=== PATIENT | female | born 1990 | race American Indian/Alaskan Native ===

== ENCOUNTER 2016-09-04 23:38 | Emergency (ER) | payer MEDICAID ==
[2016-09-04 23:57] VITALS: BP 118/82
[2016-09-05] MEDS ORDERED: MUCINEX ER PO ONE (01:37)
[2016-09-05] MEDS ORDERED: TYLENOL/CODEINE PO ONE (01:38)
--- NOTE | 2016-09-05 01:54 | Emergency Department Report ---
HPI - General Chief Complaint: Upper Respiratory Infection Time Seen by Provider: 09/05/16 01:19 - HPI HPI: This is a 26-year-old female who presents to ED complaining of coughing for the past week. Patient states started over the dry cough last week. She states this radiates its gauze and wet with yellow greenish mucus productive cough due to her using some Vicks vapor on her chest. Patient states she has some pain from intermittent coughing throughout the day. Patient states she is unable to get rested to coughing. She also has a generalized headache worsens with coughing sign she states she's been taking some Tylenol/aspirin for her generalized body aches She denies fevers/chills/nausea/vomiting/abdominal pain/dizziness/blurred vision / ear pain ED Past Medical Hx - Past Medical History Previous Medical History?: No - Surgical History Past Surgical History?: Yes Additional Surgical History: colonoscopy - Social History Smoking Status: Current Some Day Smoker Substance Use Type: None - Medications Home Medications: Home Medications Medication Instructions Recorded Confirmed Last Taken Type Azithromycin [Zithromax] 250 mg PO DAILY #1 pack 09/05/16 Unknown Rx Benzonatate [Tessalon Perles] 100 mg PO Q8HR #21 capsule 09/05/16 Unknown Rx Promethazine /Codeine 5 ml PO Q6H PRN #80 ml 09/05/16 Unknown Rx [Phenergan/Codeine 6.25-10 mg/5Ml] guaiFENesin ER [Mucinex ER] 600 mg PO Q12H #12 tablet.er 09/05/16 Unknown Rx ED Review of Systems ROS: Stated complaint: COLD SYMPTOMS Other details as noted in HPI Constitutional: denies: chills, fever Eyes: denies: eye pain, eye discharge, vision change ENT: denies: ear pain, throat pain Respiratory: denies: cough, shortness of breath, wheezing Cardiovascular: denies: chest pain, palpitations Endocrine: no symptoms reported Gastrointestinal: denies: abdominal pain, nausea, diarrhea Genitourinary: denies: urgency, dysuria, discharge Musculoskeletal: denies: back pain, joint swelling, arthralgia Skin: denies: rash, lesions Neurological: denies: headache, weakness, paresthesias Psychiatric: denies: anxiety, depression Hematological/Lymphatic: denies: easy bleeding, easy bruising Physical Exam - Physical Exam Vital Signs: Vital Signs 09/04/16 23:53 Temperature 98.2 F Pulse Rate 67 Respiratory 18 Rate Blood Pressure 118/82 Blood Pressure 118/82 [Right] O2 Sat by Pulse 100 Oximetry Physical Exam: GENERAL: Alert and oriented x3, no apparent distress, Normal Gait, atraumatic. HEAD: Head is normocephalic and a-traumatic. EYES: Extra ocular muscles are intact. Pupils are equal, round, and reactive to light and accommodation. EARS: symetrical, atraumatic, non tender, ear canal clear and moderate cerumen, tympanic membrance non inflamed. gross auditory nml bilaterally. NOSE: Nose symetrical, Nontender,Nares appeared normal. MOUTH:Mouth is well hydrated and without lesions. Tonsils nonerythematous or swollen, Uvula midline, Tongue not elevated. Mucous membranes are moist. Posterior pharynx clear, no exudate or lesions. Patent airways. NECK: Supple. Non edematous, No lymphadenopathy or thyromegaly. No C-spine tenderness LUNGS: Symetrical with respiration, No wheezing, no rales or crackles, adventitious lung sounds left HEART: S1, S2 present, regular rate and rhythm without murmur, no rubs, no gallops. Non tender to palpation ABDOMEN: No organomegaly was noted,Positive bowel sounds, soft, and non- distended. . Nontender to palpation on all Quadrants, NO CVA tenderness. SKIN: Warm and dry, No lesions, No ulceration or induration present. ED Course Vital Signs 09/04/16 23:53 Temperature 98.2 F Pulse Rate 67 Respiratory 18 Rate Blood Pressure 118/82 Blood Pressure 118/82 [Right] O2 Sat by Pulse 100 Oximetry ED Medical Decision Making - Medical Decision Making 26-year-old female presents with upper respiratory infection ED course: Patient received Tylenol with Codeine, Mucinex. Chest x-ray ordered. Chest x-ray shows no infiltrates, no cardio pulmonary process Discussed findings with patient. Vital signs are normal patient is in no acute distress Discussed the patient denies symptoms initially resolved and will need symptomatic relief. Discussed with the medication as prescribed Discussed follow-up with primary care physician. Discussed if worsening symptoms to return to the ED Critical care attestation.: If time is entered above; I have spent that time in minutes in the direct care of this critically ill patient, excluding procedure time. ED Disposition Clinical Impression: URI (upper respiratory infection) Qualifiers: URI type: unspecified URI Qualified Code(s): J06.9 - Acute upper respiratory infection, unspecified Disposition: DC-01 TO HOME OR SELFCARE Is pt being admited?: No Does the pt Need Aspirin: No Condition: Stable Instructions: Upper Respiratory Infection (ED), Guaifenesin (By mouth), Acute Cough (ED) Prescriptions: Azithromycin [Zithromax] 250 mg PO DAILY #1 pack Benzonatate [Tessalon Perles] 100 mg PO Q8HR #21 capsule guaiFENesin ER [Mucinex ER] 600 mg PO Q12H #12 tablet.er Promethazine /Codeine [Phenergan/Codeine 6.25-10 mg/5Ml] 5 ml PO Q6H PRN #80 ml PRN Reason: cough Referrals: PRIMARY CARE, [Primary Care Provider] - 3-5 Days [facility] [Outside] - 3-5 Days [facility] [Outside] - 3-5 Days [facility] [Outside] - 3-5 Days Forms: Accompanied Note, Work/School Release Form(ED) Time of Disposition: 02:49
--- NOTE | 2016-09-05 02:51 | XRay Report ---
FINAL REPORT PROCEDURE: XR CHEST ROUTINE 2V TECHNIQUE: PA and lateral chest radiographs were obtained. CPT 50083 HISTORY: katherin/cp/cough COMPARISON: No prior studies are available for comparison. FINDINGS: Heart: Normal. Mediastinum/Vessels: Normal. Lungs/Pleural space: Normal. Bony thorax: No acute osseous abnormality. Other: IMPRESSION: Normal examination.
== END 2016-09-05 03:06 | disposition home or self-care (01) ==
LOC: ED 23:38
DX: J06.9 Acute upper respiratory infection, unspecified (principal); F17.210 Nicotine dependence, cigarettes, uncomplicated
CPT/HCPCS: 71020; 99283

== ENCOUNTER 2018-10-09 21:14 | Emergency (ER) | payer MEDICAID ==
[2018-10-09 22:01] VITALS: BP 114/79
--- NOTE | 2018-10-09 22:03 | Emergency Department Report ---
ED Allergic Reaction HPI - General Chief complaint: Allergic Reaction Stated complaint: POSSIBLE ALLERGIC REACTION Time Seen by Provider: 10/09/18 21:58 Source: patient Mode of arrival: Ambulatory Limitations: No Limitations - History of Present Illness Initial Comments: This is a 28-year-old female nontoxic well in appearance with no signs of distress presents to the ED for a work excuse. Patient stated that earlier today had an allergic reaction to unknown and had some rash to legs which now resolved. Denies any difficulty breasthing or rash now. Stated that all symptoms has resolved. Patient denies any symptoms. Denies any fever, chills, headache, nausea, vomiting, chest pain or SOB. Denies any other complaints. -: This morning Exposure: unknown Treatment Prior to Arrival: benadryl Previous Allergy History: none - Related Data Previous Rx's Medication Instructions Recorded Last Taken Type Azithromycin [Zithromax] 250 mg PO DAILY #1 pack 09/05/16 Unknown Rx Benzonatate [Tessalon Perles] 100 mg PO Q8HR #21 capsule 09/05/16 Unknown Rx Promethazine /Codeine 5 ml PO Q6H PRN #80 ml 09/05/16 Unknown Rx [Phenergan/Codeine 6.25-10 mg/5Ml] guaiFENesin ER [Mucinex ER] 600 mg PO Q12H #12 tablet.er 09/05/16 Unknown Rx Allergies Allergy/AdvReac Type Severity Reaction Status Date / Time acetaminophen [From Percocet] Allergy Hives Verified 10/09/18 21:19 onion Allergy Hives Verified 10/09/18 21:19 oxycodone [From Percocet] Allergy Hives Verified 10/09/18 21:19 ED Review of Systems ROS: Stated complaint: POSSIBLE ALLERGIC REACTION Other details as noted in HPI Constitutional: denies: chills, fever Eyes: denies: eye pain, eye discharge, vision change ENT: denies: ear pain, throat pain Respiratory: denies: cough, shortness of breath, wheezing Cardiovascular: denies: chest pain, palpitations Endocrine: no symptoms reported Gastrointestinal: denies: abdominal pain, nausea, diarrhea Genitourinary: denies: urgency, dysuria, discharge Musculoskeletal: denies: back pain, joint swelling, arthralgia Skin: denies: rash, lesions Neurological: denies: headache, weakness, paresthesias Psychiatric: denies: anxiety, depression Hematological/Lymphatic: denies: easy bleeding, easy bruising ED Past Medical Hx - Surgical History Additional Surgical History: colonoscopy - Social History Smoking Status: Current Some Day Smoker Substance Use Type: None - Medications Home Medications: Home Medications Medication Instructions Recorded Confirmed Last Taken Type Azithromycin [Zithromax] 250 mg PO DAILY #1 pack 09/05/16 Unknown Rx Benzonatate [Tessalon Perles] 100 mg PO Q8HR #21 capsule 09/05/16 Unknown Rx Promethazine /Codeine 5 ml PO Q6H PRN #80 ml 09/05/16 Unknown Rx [Phenergan/Codeine 6.25-10 mg/5Ml] guaiFENesin ER [Mucinex ER] 600 mg PO Q12H #12 tablet.er 09/05/16 Unknown Rx ED Physical Exam - General Limitations: No Limitations General appearance: alert, in no apparent distress - Head Head exam: Present: atraumatic, normocephalic - ENT ENT exam: Present: normal exam, normal orophraynx, other (uvula midline. no angioedema.) - Neck Neck exam: Present: normal inspection, full ROM. Absent: tenderness, meningismus, lymphadenopathy - Respiratory Respiratory exam: Present: normal lung sounds bilaterally. Absent: respiratory distress, wheezes, rales, rhonchi, stridor, chest wall tenderness, accessory muscle use, decreased breath sounds, prolonged expiratory - Cardiovascular Cardiovascular Exam: Present: regular rate, normal rhythm, normal heart sounds. Absent: bradycardia, tachycardia, irregular rhythm, systolic murmur, diastolic murmur, rubs, gallop - Extremities Exam Extremities exam: Present: normal inspection, full ROM - Back Exam Back exam: Present: normal inspection, full ROM - Neurological Exam Neurological exam: Present: alert, oriented X3, normal gait - Psychiatric Psychiatric exam: Present: normal affect, normal mood - Skin Skin exam: Present: warm, dry, intact, normal color. Absent: rash ED Course - Reevaluation(s) Reevaluation #1: 10/09/18 22:02 Patient is speaking in full sentences with no signs of distress noted. ED Medical Decision Making - Medical Decision Making Patient was instructed to Follow-up with a primary care doctor in 3-5 days or if symptoms worsen and continue return to emergency room as soon as possible. At time of discharge, the patient does not seem toxic or ill in appearance. No acute signs of distress noted. Patient agrees to discharge treatment plan of care. No further questions noted by the patient. Critical care attestation.: If time is entered above; I have spent that time in minutes in the direct care of this critically ill patient, excluding procedure time. ED Disposition Clinical Impression: Encounter to obtain excuse from work Disposition: DC-01 TO HOME OR SELFCARE Is pt being admited?: No Does the pt Need Aspirin: No Condition: Stable Additional Instructions: Follow-up with a primary care doctor in 3-5 days or if symptoms worsen and continue return to emergency room as soon as possible. Referrals: PRIMARY CAREMD [Referring] - 3-5 Days MAGDIEL ERNST MD [Staff Physician] - 3-5 Days [facility] [Outside] - 3-5 Days [facility] [Outside] - 3-5 Days Forms: Work/School Release Form(ED)
== END 2018-10-09 22:42 | disposition home or self-care (01) ==
LOC: ED 21:14
DX: T78.40XA Allergy, unspecified, initial encounter (principal); R21 Rash and other nonspecific skin eruption; Y92.89 Other specified places as the place of occurrence of the external cause
CPT/HCPCS: 99282

== ENCOUNTER 2018-11-03 23:08 | Emergency (ER) | payer MEDICAID ==
[2018-11-04 00:53] VITALS: BP 120/72
--- NOTE | 2018-11-04 05:15 | Emergency Department Report ---
ED Allergic Reaction HPI - General Chief complaint: Allergic Reaction Stated complaint: RASH Time Seen by Provider: 11/04/18 03:08 Source: patient Mode of arrival: Ambulatory Limitations: No Limitations - History of Present Illness Initial Comments: 28-year-old female with chronic recurrent hives of unknown etiology that is not resolved with the emergency room treatments. States she's been seen multiple times in the emergency room 304 and provided with similar medications with no resolution of her hives. She is planning on wants an television announcer need some some some information regarding local physician to schedule an appointment with. Denies any wheezing or shortness of breath, no sore throat. No dysphagia. No stridor. The hemoptysis, hematemesis, hematochezia MD Complaint: hives Exposure: unknown Symptoms: rash, itching Treatment Prior to Arrival: other Previous Allergy History: none - Related Data Previous Rx's Medication Instructions Recorded Last Taken Type Azithromycin [Zithromax] 250 mg PO DAILY #1 pack 09/05/16 Unknown Rx Benzonatate [Tessalon Perles] 100 mg PO Q8HR #21 capsule 09/05/16 Unknown Rx Promethazine /Codeine 5 ml PO Q6H PRN #80 ml 09/05/16 Unknown Rx [Phenergan/Codeine 6.25-10 mg/5Ml] guaiFENesin ER [Mucinex ER] 600 mg PO Q12H #12 tablet.er 09/05/16 Unknown Rx Desloratadine [Clarinex] 5 mg PO DAILY #14 tablet 11/04/18 Unknown Rx hydrOXYzine HCL [Atarax] 25 mg PO Q6HR PRN #30 tablet 11/04/18 Unknown Rx Allergies Allergy/AdvReac Type Severity Reaction Status Date / Time onion Allergy Hives Verified 10/09/18 21:19 oxycodone [From Percocet] Allergy Hives Verified 10/09/18 21:19 ED Review of Systems ROS: Stated complaint: RASH Other details as noted in HPI Comment: All other systems reviewed and negative ED Past Medical Hx - Past Medical History Previous Medical History?: Yes Hx Asthma: Yes - Surgical History Past Surgical History?: Yes Additional Surgical History: colonoscopy - Social History Smoking Status: Never Smoker Substance Use Type: None - Medications Home Medications: Home Medications Medication Instructions Recorded Confirmed Last Taken Type Azithromycin [Zithromax] 250 mg PO DAILY #1 pack 09/05/16 Unknown Rx Benzonatate [Tessalon Perles] 100 mg PO Q8HR #21 capsule 09/05/16 Unknown Rx Promethazine /Codeine 5 ml PO Q6H PRN #80 ml 09/05/16 Unknown Rx [Phenergan/Codeine 6.25-10 mg/5Ml] guaiFENesin ER [Mucinex ER] 600 mg PO Q12H #12 tablet.er 09/05/16 Unknown Rx Desloratadine [Clarinex] 5 mg PO DAILY #14 tablet 11/04/18 Unknown Rx hydrOXYzine HCL [Atarax] 25 mg PO Q6HR PRN #30 tablet 11/04/18 Unknown Rx ED Physical Exam - General Limitations: No Limitations General appearance: alert, in no apparent distress - Head Head exam: Present: atraumatic, normocephalic - Eye Eye exam: Present: normal appearance - ENT ENT exam: Present: mucous membranes moist - Neck Neck exam: Present: normal inspection - Respiratory Respiratory exam: Present: normal lung sounds bilaterally. Absent: respiratory distress - Cardiovascular Cardiovascular Exam: Present: regular rate, normal rhythm. Absent: systolic murmur, diastolic murmur, rubs, gallop - GI/Abdominal GI/Abdominal exam: Present: soft, normal bowel sounds - Extremities Exam Extremities exam: Present: normal inspection - Back Exam Back exam: Present: normal inspection - Neurological Exam Neurological exam: Present: alert, oriented X3 - Psychiatric Psychiatric exam: Present: normal affect, normal mood - Skin Skin exam: Present: warm, dry, intact, urticaria (various stages, no angioedema). Absent: normal color, rash ED Course Vital Signs 11/04/18 11/04/18 00:10 03:27 Temperature 98.4 F Pulse Rate 75 72 Respiratory 12 16 Rate Blood Pressure 120/72 O2 Sat by Pulse 99 100 Oximetry ED Medical Decision Making - Medical Decision Making 28-year-old female with diffuse off and on recurrent for the last several days, unknown etiology, likely secondary to irritant of some type, although her diarrhea. He has not shown her so. Could be idiopathic or psychological well. The food related allergy far is to follow with television announcer to find the definitive corporate. She reports no known changes in her environment in the last few months Critical care attestation.: If time is entered above; I have spent that time in minutes in the direct care of this critically ill patient, excluding procedure time. ED Disposition Clinical Impression: Chronic idiopathic urticaria Disposition: - TO HOME OR SELFCARE Is pt being admited?: No Does the pt Need Aspirin: No Condition: Stable Instructions: Urticaria (ED) Prescriptions: hydrOXYzine HCL [Atarax] 25 mg PO Q6HR PRN #30 tablet PRN Reason: Itching Desloratadine [Clarinex] 5 mg PO DAILY #14 tablet Referrals: RUTH SANCHEZ MD [Referring] - 3-5 Days ABIOLA GRIFFIN MD [Referring] - 3-5 Days Forms: Work/School Release Form(ED)
== END 2018-11-04 03:50 | disposition home or self-care (01) ==
LOC: ED 23:08
DX: L50.1 Idiopathic urticaria (principal); J45.909 Unspecified asthma, uncomplicated; Z91.018 Allergy to other foods; Z88.8 Allergy status to other drugs, medicaments and biological substances; Z79.899 Other long term (current) drug therapy
CPT/HCPCS: 99282

== ENCOUNTER 2019-01-16 17:46 | Emergency (ER) | payer MEDICAID ==
--- NOTE | 2019-01-16 18:52 | Emergency Department Report ---
Chief Complaint: Upper Respiratory Infection Stated Complaint: CHEST CONGESTION Time Seen by Provider: 01/16/19 18:43 - HPI History of Present Illness: This is a 28 y.o. F. that presents to the ER with congestion for 1 week. Patient states she is going out of town tonight. Patient states she completed antibiotics and steroids prescribed by [facility]. Patient states she have followup with a pulmonary next month. She just want to know if she need to take her nebulizer with her out of town. Patient denies chest pain, shortness - ROS Review of Systems: Constitutional: denies: chills, fever Eyes: denies: eye pain, eye discharge, vision change ENT: admits: congestion denies: ear pain, throat pain Respiratory: denies: shortness of breath, wheezing, cough Cardiovascular: denies: chest pain, palpitations Gastrointestinal: denies: abdominal pain, nausea, diarrhea Musculoskeletal: denies: back pain, joint swelling, arthralgia Skin: denies: rash, lesions Neurological: denies: headache, weakness, paresthesias Psychiatric: denies: anxiety, depression Hematological/Lymphatic: denies: easy bleeding, easy bruising - Exam Vital Signs: Vital Signs 01/16/19 18:43 Temperature 98.1 F Pulse Rate 81 Respiratory 18 Rate Blood Pressure 116/80 O2 Sat by Pulse 100 Oximetry Physical Exam: GENERAL APPEARANCE: Well developed, well nourished, alert and cooperative, and appears to be in no acute distress. HEAD: normocephalic. EARS: External auditory canals and tympanic membranes clear, hearing grossly intact. NOSE: Turbinates congested with clear discharge. THROAT: Oral cavity and pharynx normal. No inflammation, swelling, exudate, or lesions. CARDIAC: Normal S1 and S2. No S3, S4 or murmurs. Rhythm is regular. There is no peripheral edema, cyanosis or pallor. Extremities are warm and well perfused. Capillary refill is less than 2 seconds. No carotid bruits. LUNGS: Clear to auscultation and percussion without rales, rhonchi, wheezing or diminished breath sounds. SKIN: Skin normal color, texture and turgor with no lesions or eruptions. PSYCHIATRIC: The mental examination revealed the patient was oriented to person, place, and time. The patient was able to demonstrate good judgement and reason, without hallucinations, abnormal affect or abnormal behaviors during the examination. Patient is not suicidal. MSE screening note: Focused history and physical exam performed. Due to findings the following was ordered: ED Medical Decision Making - Medical Decision Making Patient is stable was examined by me. Vitals are normal. Lungs clear throughout on exam. Completed antibiotics and steroids 1 week ago. PMH of asthma. Start mucinex and singular for upper respiratory infection. Follow-up with a primary care doctor in 3-5 days or if symptoms worsen and continue return to emergency room as soon as possible. Instructed to keep pulmonary appointment for next month. At time of discharge, the patient does not seem toxic or ill in appearance. No acute signs of distress noted. Patient agrees to discharge treatment plan of care. No further questions noted by the patient. ED Disposition for MSE Clinical Impression: URI, acute Disposition: DC-01 TO HOME OR SELFCARE Is pt being admited?: No Condition: Stable Instructions: Upper Respiratory Infection (ED) Prescriptions: guaiFENesin 400 mg PO Q4H #20 tablet Montelukast [Singulair] 10 mg PO QPM #30 tablet Referrals: [facility] [Outside] - 3-5 Days [facility] [Provider Group] - 3-5 Days [facility] [Provider Group] - 3-5 Days Forms: Work/School Release Form(ED) Time of Disposition: 18:53
[2019-01-16 19:29] VITALS: BP 132/66
== END 2019-01-16 20:22 | disposition home or self-care (01) ==
LOC: ED 17:46
DX: J06.9 Acute upper respiratory infection, unspecified (principal); Z88.5 Allergy status to narcotic agent; Z91.018 Allergy to other foods
CPT/HCPCS: 99282